=== PATIENT | female | born 2000 | race Caucasian/White ===

== ENCOUNTER 2020-09-04 | Emergency (ER) | payer BC, OTHER ==
[2020-09-04] MEDS ORDERED: FAMOTIDINE20 M1 PO (16:46)
[2020-09-04 17:30] LABS: HEMATOCRIT 38.1 % (37.0-47.0); HEMOGLOBIN 12.7 g/dl (12.0-16.0); IMMATURE GRANULOCYTES 0.6 % (0.0-5.0); MEAN CELL VOLUME 85.4 fL CALC (80.0-100.0); MEAN CORPUSCULAR HGB 28.5 pG CALC (26.0-32.0); MEAN CORPUSCULAR HGB CONC 33.3 g/dL CAL (32.0-36.0); NEUT# 3.89 thou/uL (2.00-7.15); RED BLOOD COUNT 4.46 mill/uL (4.20-5.60); RED CELL DISTRI WIDTH 13.5 % (11.5-15.5)
[2020-09-04] MEDS ORDERED: FOLIC ACID1 MG PO (17:33)
[2020-09-04] MEDS ORDERED: OMEPRAZOLE DR20 MG (17:33)
[2020-09-04] MEDS ORDERED: VITAMIN B 12100 MCG PO (17:34)
[2020-09-04 17:55] LABS: ALKALINE PHOSPHATASE 52 u/l (38-126); ANION GAP 11 (6-22 (CALC)); BILIRUBIN, TOTAL 0.7 mg/dL (0.0-1.4); BUN 9 mg/dL (7-17); BUN/CREATININE RATIO 18 (12-20 (CALC)); CARBON DIOXIDE 24 mmol/l (22-30); CHLORIDE 103 mmol/l (95-108); CREATININE 0.5 mg/dL (0.5-1.0); GFR > 60 ML/MIN (>=60 (CALC)); GFR FOR AFR.AMER. > 60 ML/MIN (>=60 (CALC)); POTASSIUM 3.7 mmol/l (3.5-5.1); SGOT/AST 37 u/l (14-36); SODIUM 135 mmol/l (137-146); TOTAL PROTEIN 7.1 g/dL (6.3-8.2)
== END 2020-09-04 19:17 | disposition home or self-care (01) | DRG 392 ==
PROVIDERS: Emergency Medicine
DX: R10.9 Unspecified abdominal pain (principal); T47.4X5A Adverse effect of other laxatives, initial encounter

== ENCOUNTER 2021-11-14 16:17 | Emergency (ER) | payer BC, OTHER ==
[~2021-11-14] VITALS: Ht 170.2 cm; Wt 117.9 kg
[~2021-11-14 16:17] MED LIST: FAMOTIDINE20 M1 PO; FOLIC ACID1 MG PO; OMEPRAZOLE DR20 MG; VITAMIN B 12100 MCG PO
[2021-11-14 17:41] LABS: URINE BILIRUBIN - DIPSTICK NEGATIVE (NEGATIVE); URINE BLOOD DIPSTICK LARGE (NEGATIVE); URINE COLOR YELLOW; URINE GLUCOSE - DIPSTICK >=1000 mg/dL (NEGATIVE); URINE KETONE NEGATIVE (NEGATIVE); URINE LEUK ESTERASE NEGATIVE (NEGATIVE); URINE PROTEIN - DIPSTICK 30 mg/dL (NEG-TRACE); URINE SPECIFIC GRAVITY >=1.030; URINE UROBILINOGEN - DIPSTICK 0.2 E.U./dL (0.2)
[2021-11-14 17:42] LABS: URINE NITRITE - DIPSTICK POSITIVE (Negative)
[2021-11-14 17:43] LABS: HEMATOCRIT 40.1 % (37.0-47.0); HEMOGLOBIN 13.3 g/dl (12.0-16.0); IMMATURE GRANULOCYTES 0.2 % (0.0-5.0); MEAN CELL VOLUME 87.4 fL CALC (80.0-100.0); MEAN CORPUSCULAR HGB CONC 33.2 g/dL CAL (32.0-36.0); NEUT# 6.44 thou/uL (2.00-7.15); RED BLOOD COUNT 4.59 mill/uL (4.20-5.60); RED CELL DISTRI WIDTH 13.9 % (11.5-15.5)
[2021-11-14 17:49] LABS: URINE RBC 25-50 RBC/hpf (0-5)
[2021-11-14 17:50] LABS: URINE BACTERIA MODERATE hpf; URINE SQUAMOUS EPITHELIAL CELL FEW EPI/hpf (0-FEW)
[2021-11-14 17:58] LABS: ALBUMIN 4.5 g/dL (3.2-5.0); ALKALINE PHOSPHATASE 60 u/l (38-126); ANION GAP 13 (6-22 (CALC)); BILIRUBIN, TOTAL 0.6 mg/dL (0.0-1.4); BUN 11 mg/dL (7-17); BUN/CREATININE RATIO 14 (12-20 (CALC)); CARBON DIOXIDE 21 mmol/l (22-30); CHLORIDE 107 mmol/l (95-108); CREATININE 0.7 mg/dL (0.5-1.0); GFR FOR AFR.AMER. > 60 ML/MIN (>=60 (CALC)); GFR OTHER RACES > 60 ML/MIN (>=60 (CALC)); POTASSIUM 3.7 mmol/l (3.5-5.1); SGOT/AST 21 u/l (14-36); SODIUM 138 mmol/l (137-146); TOTAL PROTEIN 7.6 g/dL (6.3-8.2)
[2021-11-14 18:11] VITALS: BP 128/75
[2021-11-14] MEDS ORDERED: KEFLEX500 MG PO (18:19)
[2021-11-14] MEDS ORDERED: PYRIDIUM200 MG PO (18:19)
[2021-11-14 18:22] VITALS: BP 128/75
== END 2021-11-14 18:30 | disposition home or self-care (01) | DRG 690 ==
LOC: ED 16:17
PROVIDERS: Emergency Medicine
DX: N39.0 Urinary tract infection, site not specified (principal); B96.20 Unspecified Escherichia coli [E. coli] as the cause of diseases classified elsewhere

== ENCOUNTER 2022-04-13 22:17 | Emergency (ER) | payer BC, OTHER ==
[~2022-04-13] VITALS: Ht 170.2 cm; Wt 118.0 kg
[~2022-04-13 22:17] MED LIST changes: +KEFLEX500 MG PO; +PYRIDIUM200 MG PO
[2022-04-14 00:20] VITALS: BP 113/82
[2022-04-14] MEDS ORDERED: [UNRECOGNIZED DRUG - REMARK] (00:50)
[2022-04-14 01:11] LABS: URINE BILIRUBIN - DIPSTICK NEGATIVE (NEGATIVE); URINE BLOOD DIPSTICK NEGATIVE (NEGATIVE); URINE COLOR YELLOW; URINE GLUCOSE - DIPSTICK >=1000 mg/dL (NEGATIVE); URINE KETONE NEGATIVE (NEGATIVE); URINE LEUK ESTERASE NEGATIVE (NEGATIVE); URINE PROTEIN - DIPSTICK NEGATIVE (NEG-TRACE); URINE UROBILINOGEN - DIPSTICK 0.2 E.U./dL (0.2)
[2022-04-14 01:26] LABS: URINE NITRITE - DIPSTICK NEGATIVE (Negative)
[2022-04-14 01:32] LABS: HEMATOCRIT 38.9 % (37.0-47.0); HEMOGLOBIN 13.2 g/dl (12.0-16.0); IMMATURE GRANULOCYTES 1.5 % (0.0-5.0); MEAN CELL VOLUME 85.1 fL CALC (80.0-100.0); MEAN CORPUSCULAR HGB 28.9 pG CALC (26.0-32.0); MEAN CORPUSCULAR HGB CONC 33.9 g/dL CAL (32.0-36.0); NEUT# 6.44 thou/uL (2.00-7.15); RED BLOOD COUNT 4.57 mill/uL (4.20-5.60); RED CELL DISTRI WIDTH 13.1 % (11.5-15.5)
[2022-04-14 01:45] LABS: ALBUMIN 4.3 g/dL (3.2-5.0); ALKALINE PHOSPHATASE 64 u/l (38-126); ANION GAP 13 (6-22 (CALC)); BILIRUBIN, TOTAL 0.5 mg/dL (0.0-1.4); BUN 12 mg/dL (7-17); BUN/CREATININE RATIO 22 (12-20 (CALC)); CARBON DIOXIDE 20 mmol/l (22-30); CHLORIDE 104 mmol/l (95-108); CREATININE 0.6 mg/dL (0.5-1.0); GFR FOR AFR.AMER. > 60 ML/MIN (>=60 (CALC)); GFR OTHER RACES > 60 ML/MIN (>=60 (CALC)); POTASSIUM 3.7 mmol/l (3.5-5.1); SGOT/AST 23 u/l (14-36); SODIUM 134 mmol/l (137-146); TOTAL PROTEIN 7.6 g/dL (6.3-8.2)
[2022-04-14 01:54] LABS: MYOGLOBIN 17 ng/mL (0 - 62)
[2022-04-14 02:19] LABS: TSH, 3RD GENERATION 0.85 uIU/mL (0.47 - 4.68)
[2022-04-14] MEDS ORDERED: KEFLEX500 MG PO (03:05)
[2022-04-14] MEDS ORDERED: FLONASE AL50 MCG/ACT (03:05)
== END 2022-04-14 03:20 | disposition home or self-care (01) | DRG 153 ==
LOC: ED 22:17
PROVIDERS: Emergency Medicine
DX: J06.9 Acute upper respiratory infection, unspecified (principal); Z20.822 Contact with and (suspected) exposure to COVID-19

== ENCOUNTER 2022-07-25 09:13 | Emergency (ER) | payer BC, OTHER ==
[~2022-07-25] VITALS: Ht 172.7 cm; Wt 117.9 kg
[~2022-07-25 09:13] MED LIST changes: +FLONASE AL50 MCG/ACT; +[UNRECOGNIZED DRUG - REMARK]
[2022-07-25 09:22] VITALS: BP 123/82
[2022-07-25 09:24] VITALS: BP 118/80
[2022-07-25] MEDS ORDERED: BIRTH CONTROL (09:49)
[2022-07-25] MEDS ORDERED: METFORMIN HCL500 M1 PO (09:49)
[2022-07-25] MEDS ORDERED: PROTONIX40 M2 PO (09:50)
[2022-07-25 10:24] VITALS: BP 118/80
== END 2022-07-25 10:25 | disposition home or self-care (01) | DRG 153 ==
LOC: ED 09:13
DX: J02.8 Acute pharyngitis due to other specified organisms (principal); Z20.822 Contact with and (suspected) exposure to COVID-19; E11.9 Type 2 diabetes mellitus without complications; Z79.84 Long term (current) use of oral hypoglycemic drugs

== ENCOUNTER 2023-04-11 19:49 | Emergency (ER) | payer BC, OTHER ==
[~2023-04-11] VITALS: Ht 172.7 cm; Wt 121.8 kg
[2023-04-11] VITALS (7 sets, daily range): BP systolic 107–120; BP diastolic 69–81
[~2023-04-11 19:49] MED LIST changes: +BIRTH CONTROL; +METFORMIN HCL500 M1 PO; +PROTONIX40 M2 PO
[2023-04-11] MEDS ORDERED: TRULICITY4.5 MG/0.5 SC (19:59)
[2023-04-11 20:28] LABS: URINE BLOOD DIPSTICK Negative (NEGATIVE); URINE GLUCOSE - DIPSTICK Negative (NEGATIVE); URINE KETONE Negative (NEGATIVE); URINE LEUK ESTERASE Negative (NEGATIVE); URINE NITRITE - DIPSTICK Negative (Negative); URINE PH 5.5 (4.5-8.0); URINE PROTEIN - DIPSTICK Trace mg/dL (NEG-TRACE); URINE SPECIFIC GRAVITY >=1.030
[2023-04-11 20:29] LABS: URINE COLOR Yellow
[2023-04-11 20:39] LABS: BASO% 0.3 % (0-3); EOS% 3.5 % (0-8); HEMATOCRIT 40.4 % (37.0-47.0); HEMOGLOBIN 13.6 g/dl (12.0-16.0); IMMATURE GRANULOCYTES 0.8 % (0.0-5.0); LYMPH% 23.8 % (15-41); MEAN CELL VOLUME 84.5 fL CALC (80.0-100.0); MEAN CORPUSCULAR HGB 28.5 pG CALC (26.0-32.0); MEAN CORPUSCULAR HGB CONC 33.7 g/dL CAL (32.0-36.0); MONO% 6.9 % (2-13); NEUT# 6.83 thou/uL (2.00-7.15); NEUT% 64.7 % (42-76); RED BLOOD COUNT 4.78 mill/uL (4.20-5.60); RED CELL DISTRI WIDTH 13.5 % (11.5-15.5)
[2023-04-11 20:53] LABS: ALBUMIN 4.3 g/dL (3.2-5.0); ALKALINE PHOSPHATASE 73 u/l (38-126); ANION GAP 15 (6-22 (CALC)); BUN 8 mg/dL (7-17); BUN/CREATININE RATIO 15 (12-20 (CALC)); CARBON DIOXIDE 22 mmol/l (22-30); CHLORIDE 105 mmol/l (95-108); CREATININE 0.6 mg/dL (0.5-1.0); GFR FOR AFR.AMER. > 60 ML/MIN (>=60 (CALC)); GFR OTHER RACES > 60 ML/MIN (>=60 (CALC)); LIPASE 106 u/l (23-300); POTASSIUM 3.8 mmol/l (3.5-5.1); SGOT/AST 35 u/l (14-36); SODIUM 138 mmol/l (137-146)
[2023-04-11] MEDS ORDERED: ONDANSETRON4 MG PO (22:56)
[2023-04-11] MEDS ORDERED: IMODIUM2 MG PO (22:56)
== END 2023-04-11 23:17 | disposition home or self-care (01) ==
LOC: ED 19:49
PROVIDERS: Family Medicine
DX: A08.4 Viral intestinal infection, unspecified (principal); I10 Essential (primary) hypertension; E11.9 Type 2 diabetes mellitus without complications; K21.9 Gastro-esophageal reflux disease without esophagitis; Z79.84 Long term (current) use of oral hypoglycemic drugs; Z20.822 Contact with and (suspected) exposure to COVID-19
CPT/HCPCS: S0164

== ENCOUNTER 2023-07-27 17:40 | Emergency (ER) | payer BC, OTHER ==
[~2023-07-27] VITALS: Ht 172.7 cm; Wt 122.4 kg
[~2023-07-27 17:40] MED LIST changes: +IMODIUM2 MG PO; +ONDANSETRON4 MG PO; +TRULICITY4.5 MG/0.5 SC
[2023-07-27 17:47] VITALS: BP 144/81
[2023-07-27 17:51] VITALS: BP 131/74
[2023-07-27] MEDS ORDERED: OMEPRAZOLE DR40 MG PO (17:52)
[2023-07-27] MEDS ORDERED: RIZATRIPTAN BEN10 MG (17:53)
[2023-07-27 18:24] LABS: EOS% 0.5 % (0-8); HEMATOCRIT 36.6 % (37.0-47.0); HEMOGLOBIN 12.3 g/dl (12.0-16.0); IMMATURE GRANULOCYTES 1.3 % (0.0-5.0); LYMPH% 13.4 % (15-41); MEAN CORPUSCULAR HGB 27.2 pG CALC (26.0-32.0); MEAN CORPUSCULAR HGB CONC 33.6 g/dL CAL (32.0-36.0); MONO% 12.6 % (2-13); NEUT# 2.76 thou/uL (2.00-7.15); NEUT% 71.2 % (42-76); RED BLOOD COUNT 4.52 mill/uL (4.20-5.60); RED CELL DISTRI WIDTH 14.9 % (11.5-15.5)
[2023-07-27 18:40] LABS: ALKALINE PHOSPHATASE 64 u/l (38-126); BILIRUBIN, TOTAL 1.4 mg/dL (0.02-1.3); BUN 8 mg/dL (7-17); BUN/CREATININE RATIO 19 (12-20 (CALC)); CARBON DIOXIDE 20 mmol/l (22-30); CHLORIDE 100 mmol/l (95-108); CREATININE 0.4 mg/dL (0.5-1.0); GFR FOR AFR.AMER. > 60 ML/MIN (>=60 (CALC)); GFR OTHER RACES > 60 ML/MIN (>=60 (CALC)); TOTAL PROTEIN 6.8 g/dL (6.3-8.2)
[2023-07-27 18:44] LABS: ANION GAP 14 (6-22 (CALC)); SGOT/AST 104 u/l (14-36); SODIUM 130 mmol/l (137-146)
[2023-07-27 19:01] VITALS: BP 140/83
[2023-07-27] MEDS ORDERED: ACETAMINOPHEN 325 MG/TAB PO ONE (19:15)
[2023-07-27] MEDS ORDERED: ONDANSETRON HCl 4 MG/2 ML SDV IV ONE (19:15)
[2023-07-27] MEDS ORDERED: SODIUM CHLORIDE 0.9% 1,000 ML IV ONE ×2 (19:15)
[2023-07-27] MEDS ORDERED: KETOROLAC TROMETHAMINE 30 MG/ML SDV IV ONE (19:15)
[2023-07-27 19:31] VITALS: BP 120/71
[2023-07-27 20:02] VITALS: BP 105/55
[2023-07-27 20:31] VITALS: BP 107/61
[2023-07-28 03:47] VITALS: BP 107/61
== END 2023-07-27 22:00 | disposition home or self-care (01) | DRG 195 ==
LOC: ED 17:40
PROVIDERS: Emergency Medicine
DX: J10.1 Influenza due to other identified influenza virus with other respiratory manifestations (principal); E86.0 Dehydration; E66.01 Morbid (severe) obesity due to excess calories; I10 Essential (primary) hypertension; E11.9 Type 2 diabetes mellitus without complications; K21.9 Gastro-esophageal reflux disease without esophagitis; Z20.822 Contact with and (suspected) exposure to COVID-19

== ENCOUNTER 2023-12-11 16:13 | Emergency (ER) | payer SELFPAY ==
[2023-12-11] VITALS (10 sets, daily range): BP systolic 97–113; BP diastolic 45–70
[~2023-12-11] VITALS: Ht 172.7 cm; Wt 113.0 kg
[~2023-12-11 16:13] MED LIST changes: +EPIPEN 2-P0.3 MG/0.3 IM; +MOUNJARO5 MG; +OMEPRAZOLE DR40 MG PO; +RIZATRIPTAN BEN10 MG
[2023-12-11] MEDS ORDERED: SODIUM CHLORIDE 0.9% 1,000 ML IV STA (16:15)
[2023-12-11] MEDS ORDERED: methylPREDNISolone SODIUM SUCC 125 MG/2 ML SDV IV STA (16:15)
[2023-12-11] MEDS ORDERED: DiphenhydrAMINE HCL 50 MG/ML SDV IV STA (16:15)
[2023-12-11] MEDS ORDERED: EPINEPHrine HCL 1 MG/ML AMP IM STA (16:15)
[2023-12-11 16:55] LABS: BASO% 0.5 % (0-3); IMMATURE GRANULOCYTES 0.7 % (0.0-5.0); LYMPH% 13.8 % (15-41); MEAN CELL VOLUME 82.7 fL CALC (80.0-100.0); MEAN CORPUSCULAR HGB 27.8 pG CALC (26.0-32.0); MEAN CORPUSCULAR HGB CONC 33.6 g/dL CAL (32.0-36.0); MONO% 5.5 % (2-13); NEUT# 6.87 thou/uL (2.00-7.15); NEUT% 78.5 % (42-76); RED BLOOD COUNT 5.14 mill/uL (4.20-5.60); RED CELL DISTRI WIDTH 14.4 % (11.5-15.5)
[2023-12-11 16:58] LABS: HEMATOCRIT 42.5 % (37.0-47.0); HEMOGLOBIN 14.3 g/dl (12.0-16.0)
[2023-12-11 17:14] LABS: ALBUMIN 4.3 g/dL (3.2-5.0); BILIRUBIN, TOTAL 1.6 mg/dL (0.02-1.3); CREATININE 0.6 mg/dL (0.5-1.0); POTASSIUM 3.6 mmol/l (3.5-5.1); TOTAL PROTEIN 7.6 g/dL (6.3-8.2)
[2023-12-11 18:11] LABS: URINE BILIRUBIN - DIPSTICK Negative (NEGATIVE); URINE BLOOD DIPSTICK Negative (NEGATIVE); URINE GLUCOSE - DIPSTICK Negative (NEGATIVE); URINE KETONE Trace mg/dL (NEGATIVE); URINE LEUK ESTERASE Negative (NEGATIVE); URINE NITRITE - DIPSTICK Negative (Negative); URINE PROTEIN - DIPSTICK Negative (NEG-TRACE); URINE SPECIFIC GRAVITY 1.025; URINE UROBILINOGEN - DIPSTICK 0.2 E.U./dL (0.2)
[2023-12-11 18:19] LABS: URINE COLOR Yellow
[2023-12-11] MEDS ORDERED: LACTATED RINGER'S 1,000 ML IV ONE (18:20)
[2023-12-11] MEDS ORDERED: MEDDOSEPAK PO (19:06)
== END 2023-12-11 20:00 | disposition home or self-care (01) | DRG 607 ==
LOC: ED 16:13
PROVIDERS: Nurse Practitioner
DX: L23.6 Allergic contact dermatitis due to food in contact with the skin (principal); R13.10 Dysphagia, unspecified; I10 Essential (primary) hypertension; E11.9 Type 2 diabetes mellitus without complications; K21.9 Gastro-esophageal reflux disease without esophagitis

== ENCOUNTER 2024-06-27 16:38 | Emergency (ER) | payer BC ==
[2024-06-27] VITALS (21 sets, daily range): BP systolic 103–153; BP diastolic 53–85
[~2024-06-27] VITALS: Ht 172.7 cm; Wt 122.0 kg
[~2024-06-27 16:38] MED LIST changes: +MEDDOSEPAK PO
[2024-06-27] MEDS ORDERED: SODIUM CHLORIDE 0.9% 1,000 ML BAG IV ONE ×2 (16:50→17:10)
[2024-06-27] MEDS ORDERED: cefTRIAXone SODIUM 2 GM in SODIUM CHLORIDE 0.9% 100 ML IV STA (16:50)
[2024-06-27] MEDS ORDERED: ISOVUE-300 (Iopamidol) 100 ML SDV IV ONE (16:55)
[2024-06-27] MEDS ORDERED: SODIUM CHLORIDE 0.9% 2,000 ML IV ONE (17:01)
[2024-06-27 17:18] LABS: URINE BILIRUBIN - DIPSTICK Negative (NEGATIVE); URINE BLOOD DIPSTICK Large (NEGATIVE); URINE GLUCOSE - DIPSTICK Negative (NEGATIVE); URINE KETONE Negative (NEGATIVE); URINE LEUK ESTERASE Negative (NEGATIVE); URINE NITRITE - DIPSTICK Negative (Negative); URINE PH 5.5 (4.5-8.0); URINE PROTEIN - DIPSTICK Trace mg/dL (NEG-TRACE); URINE SPECIFIC GRAVITY 1.025; URINE UROBILINOGEN - DIPSTICK 0.2 E.U./dL (0.2)
[2024-06-27 17:19] LABS: URINE COLOR Yellow
[2024-06-27 17:24] LABS: URINE BACTERIA FEW hpf; URINE SQUAMOUS EPITHELIAL CELL FEW EPI/hpf (0-FEW)
[2024-06-27 17:25] LABS: BASO% 0.5 % (0-3); HEMATOCRIT 38.1 % (37.0-47.0); HEMOGLOBIN 12.4 g/dl (12.0-16.0); IMMATURE GRANULOCYTES 0.2 % (0.0-5.0); LYMPH% 9.4 % (15-41); MEAN CELL VOLUME 82.5 fL CALC (80.0-100.0); MEAN CORPUSCULAR HGB 26.8 pG CALC (26.0-32.0); MEAN CORPUSCULAR HGB CONC 32.5 g/dL CAL (32.0-36.0); MONO% 6.4 % (2-13); NEUT# 7.19 thou/uL (2.00-7.15); NEUT% 82.5 % (42-76); RED BLOOD COUNT 4.62 mill/uL (4.20-5.60); RED CELL DISTRI WIDTH 13.8 % (11.5-15.5)
[2024-06-27 17:25] LABS: URINE WBC 0-2 WBC/hpf (0-5)
[2024-06-27 17:37] LABS: ALBUMIN 4.1 g/dL (3.2-5.0); CREATININE 0.6 mg/dL (0.5-1.0); POTASSIUM 3.9 mmol/l (3.5-5.1); TOTAL PROTEIN 6.9 g/dL (6.3-8.2)
[2024-06-27 17:42] LABS: BILIRUBIN, TOTAL 0.8 mg/dL (0.02-1.3)
[2024-06-27] MEDS ORDERED: KETOROLAC TROMETHAMINE 30 MG/ML SDV IV ONE (22:35)
== END 2024-06-27 22:58 | disposition home or self-care (01) | DRG 392 ==
LOC: ED 16:38
PROVIDERS: Nurse Practitioner Family
DX: A08.4 Viral intestinal infection, unspecified (principal); I10 Essential (primary) hypertension; E11.9 Type 2 diabetes mellitus without complications; K21.9 Gastro-esophageal reflux disease without esophagitis; Z79.85 Long-term (current) use of injectable non-insulin antidiabetic drugs
CPT/HCPCS: J0696; Q9967